=== PATIENT | male | born 1950 | race Two or more races ===

== ENCOUNTER 2021-07-16 08:55 | Emergency (ER) | payer SELFPAY ==
[2021-07-16 09:01] VITALS: BP 186/95
== END 2021-07-16 09:46 | disposition left against medical advice (07) ==
LOC: ER 08:55
DX: R10.9 Unspecified abdominal pain (principal); Z53.21 Procedure and treatment not carried out due to patient leaving prior to being seen by health care provider
CPT/HCPCS: 93005